=== PATIENT | female | born 1955 | race Caucasian/White ===

== ENCOUNTER 2018-10-09 11:02 | Day surgery (SDC) | payer OTHER ==
[~2018-10-09] VITALS: Ht 162.6 cm; Wt 64.0 kg
[2018-10-09] MEDS ORDERED: PROPOFOL 200 MG INJ ONE (14:15)
[2018-10-09] MEDS ORDERED: PROPOFOL 40 ML ONE (14:15)
--- NOTE | 2018-10-09 14:26 | PREAC ---
Date/Time of Note Date/Time of Note DATE: 10/09/18 TIME: 14:14 Anesthesia Eval and Record Evaluation Time Pre-Procedure Interview DATE: 10/09/18 TIME: 14:14 Age 62 Sex female NPO: 8 hrs Preoperative diagnosis Screening Planned procedure Colonoscopy Past Medical History Past Medical History: None Surgery & Anesthesia Issues No known issue Meds Anticoagulation: No Beta Enrike within 24 hr: No Reason Beta Enrike not given: Pt. not on B-Enrike Meds reviewed: Yes Allergies Allergies Reviewed: Yes Labs/Studies Labs Reviewed: Reviewed by anesthesiologist test: N/A Pre-procedure Exam Airway: Adequate mouth opening Mallampati: Mallampati II Teeth: Normal Lung: Normal Heart: Normal ASA Physical Status ASA physical status: 2 Emergency: None Planned Anesthetic General/MAC: MAC Pre-operative Attestations Prior to commencing anesthesia and surgery, the patient was re-evaluated, there was verification of: *The patient's identity *The results of appropriate recent lab work and preoperative vital signs *The above evaluation not changing prior to induction *Anesthetic plan, risk benefits, alternative and complications discussed with patient/family; questions answered; patient/family understands, accepts and wishes to proceed. EMILY BROWN MD October 09, 2018 14:26
[2018-10-09 14:27] VITALS: Ht 162.6 cm; Wt 64.0 kg
[2018-10-09 14:42] VITALS: BP 113/62; PULSE 63; RESP 18
[2018-10-09] MEDS ORDERED: VITAMINS (14:43)
--- NOTE | 2018-10-09 15:11 | PAC ---
Date/Time of Note Date/Time of Note DATE: 10/09/18 TIME: 15:11 Post-Anesthesia Notes Post-Anesthesia Note Activity: WNL Respiratory function: WNL Cardiovascular function: WNL Mental status: Baseline Pain reasonably controlled: Yes Hydration appropriate: Yes Nausea/Vomiting absent: Yes EMILY BROWN MD October 09, 2018 15:11
== END 2018-10-09 15:19 | disposition home or self-care (01) ==
LOC: GIL 11:02
PROVIDERS: ATTEND Internal Medicine Gastroenterology
DX: Z12.11 Encounter for screening for malignant neoplasm of colon (principal); K57.30 Diverticulosis of large intestine without perforation or abscess without bleeding; K64.8 Other hemorrhoids
CPT/HCPCS: 45378; Z7610